=== PATIENT | male | born 1990 | race African-American/Black ===

== ENCOUNTER 2024-02-24 00:56 | Emergency (ER) | payer BC, OTHER ==
[2024-02-24 01:09] VITALS: BMI 29.3
[2024-02-24] MEDS ORDERED: ACETAMINOPHEN INJECTION 100 ML IVPB ONE (03:13)
[2024-02-24] MEDS: LACTATED RINGERS SOLUTION 1000 ML INFUS.BAG IV ONE (03:29)
[2024-02-24] MEDS: ACETAMINOPHEN 1000 MG/100 ML BAG IVPB ONE (03:29)
[2024-02-24 04:25] LABS: BASO % 0.4 % (0-2.0); EOS % 0.1 % (0-4.5); HEMATOCRIT 41.7 % (35.4-49); HEMOGLOBIN 14.3 GM/dL (11.7-16.9); LYMPH % 17.5 % (8-40); MCH 28.1 pg (25.7-33.7); MCHC 34.2 g/dl (32.0-35.9); MEAN CELL VOLUME 82.2 fl (80-96); MEAN PLT VOLUME 11.4 fl (7.5-11.1); MONO % 5.3 % (3.8-10.2); NEUT % 76.7 % (42.8-82.8); PLATELET COUNT 75 10^3/uL (134-434); RBC 5.08 M/mm3 (4.00-5.60); RDW 14.7 % (11.9-15.9); WHITE BLOOD COUNT 4.8 K/mm3 (4.0-10.0)
[2024-02-24 04:38] LABS: ALBUMIN 3.6 g/dl (3.4-5.0); BLOOD UREA NITROGEN 15.3 mg/dL (7-18); CALCIUM 8.3 mg/dL (8.5-10.1); POTASSIUM 3.5 mmol/L (3.5-5.1)
[2024-02-24 04:40] LABS: CREATININE 1.2 mg/dL (0.55-1.3)
[2024-02-24 04:41] LABS: BILIRUBIN,TOTAL 5.6 mg/dL (0.2-1); TOT PROT 7.2 g/dl (6.4-8.2)
[2024-02-24 04:50] VITALS: BP 105/69; PULSE 122; RESP 20; TEMP 99.9
== END 2024-02-24 05:15 | disposition home or self-care (01) ==
LOC: JER 00:56
PROC: 3E033NZ Introduction of Analgesics, Hypnotics, Sedatives into Peripheral Vein, Percutaneous Approach (ICD-10-PCS; principal; 2024-02-24)
DX: R50.9 Fever, unspecified (principal); R61 Generalized hyperhidrosis; R00.0 Tachycardia, unspecified; Z20.822 Contact with and (suspected) exposure to COVID-19
CPT/HCPCS: 0241U-QW; 36415; 71046-TC-FY; 80053; 85025; 87040; 93005; 93010; 99285-25; J0131

== ENCOUNTER 2024-02-26 15:49 | Inpatient (IN) | payer OTHER ==
[2024-02-26 16:22] VITALS: BMI 28.8
[2024-02-26] MEDS ORDERED: ACETAMINOPHEN INJECTION 100 ML IVPB ONE (17:45)
[2024-02-26] MEDS: LACTATED RINGERS SOLUTION 1000 ML INFUS.BAG IV ONE ×2 (17:48→21:55)
[2024-02-26] MEDS: ACETAMINOPHEN 1000 MG/100 ML BAG IVPB ONE ×2 (17:48→19:40)
[2024-02-26 18:08] LABS: HEMATOCRIT 32.9 % (35.4-49); HEMOGLOBIN 11.1 GM/dL (11.7-16.9); MCH 27.2 pg (25.7-33.7); MCHC 33.8 g/dl (32.0-35.9); MEAN CELL VOLUME 80.3 fl (80-96); MEAN PLT VOLUME 11.3 fl (7.5-11.1); PLATELET COUNT 55 10^3/uL (134-434); RDW 15.1 % (11.9-15.9); WHITE BLOOD COUNT 6.9 K/mm3 (4.0-10.0)
[2024-02-26 18:19] LABS: POTASSIUM 3.7 mmol/L (3.5-5.1)
[2024-02-26 18:21] LABS: CALCIUM 7.9 mg/dL (8.5-10.1)
[2024-02-26 18:22] LABS: BLOOD UREA NITROGEN 27.1 mg/dL (7-18)
[2024-02-26 18:25] LABS: CREATININE 1.5 mg/dL (0.55-1.3)
[2024-02-26 18:26] LABS: ALBUMIN 2.4 g/dl (3.4-5.0)
[2024-02-26 18:28] LABS: BILIRUBIN,TOTAL 8.2 mg/dL (0.2-1)
[2024-02-26] MEDS: METOCLOPRAMIDE HCL INJECTION 10 MG/2 ML VIAL IVPUSH ONE (19:36)
[2024-02-26 19:41] LABS: ANISOCYTOSIS 1+; MACROCYTOSIS 0; OVALOCYTE 1+; TARGET CELLS 1+; TOXIC GRANULATION 1+
[2024-02-26 20:31] LABS: RETICULOCYTES 0.66 % (0.5-1.5)
[2024-02-26 20:40] LABS: BILIRUBIN,DIRECT 5.8 mg/dL (0.0-0.2)
[2024-02-26] MEDS: HALOPERIDOL LACTATE 5 MG/ML IM ONE (21:46)
[2024-02-26] MEDS ORDERED: MORPHINE SULFATE 2 MG/ML SYRINGE ONE (21:49)
[2024-02-26] MEDS: morphine CARPU-JECT 2 MG/1 ML DISP.SYRIN IVPUSH ONE (21:55)
[2024-02-26] MEDS ORDERED: ONDANSETRON 4 MG/2 ML VIAL IVPUSH PRN (22:10)
[2024-02-26] MEDS ORDERED: PIPERACILLIN/TAZOB 4.5 GM 4.5 GM/100 ML BAG IVPB ONE (23:14)
[2024-02-26] MEDS ORDERED: DOXYCYCLINE HYCLATE 100 MG VIAL ONE (23:15)
[2024-02-26] MEDS: PIPERACILLIN/TAZOB 4.5 GM 4.5 GM in DEXTROSE 5%-WATER 100 ML IVPB ONE (23:23)
[2024-02-26] MEDS ORDERED: ONDANSETRON 4 MG/2 ML VIAL ONE (23:42)
[2024-02-27] MEDS: ONDANSETRON 4 MG/2 ML VIAL IVPUSH ONE (00:05)
[2024-02-27] MEDS: DOXYCYCLINE INJECTION 100 MG in DEXTROSE 5%-WATER 100 ML IVPB ONE (00:05)
[2024-02-27] MEDS ORDERED: ACETAMINOPHEN INJECTION 100 ML IVPB ONE (01:05)
[2024-02-27] MEDS: ACETAMINOPHEN 1000 MG/100 ML BAG IVPB PRN (01:12)
[2024-02-27] MEDS ORDERED: PIPERACILLIN/TAZOBACTAM 3.375 GM VIAL IVPB ONE (03:56)
[2024-02-27] MEDS: PIPERACILLIN/TAZOB 3.375 GM 3.375 GM in DEXTROSE 5%-WATER - 50 ML IVPB SCH ×2 (03:59→16:29)
[2024-02-27 07:12] LABS: HEMOGLOBIN 10.4 GM/dL (11.7-16.9); MCHC 33.4 g/dl (32.0-35.9); MEAN CELL VOLUME 80.8 fl (80-96); RBC 3.84 M/mm3 (4.00-5.60); WHITE BLOOD COUNT 6.4 K/mm3 (4.0-10.0)
[2024-02-27 07:37] LABS: POTASSIUM 3.6 mmol/L (3.5-5.1)
[2024-02-27 07:52] LABS: TOT PROT 5.8 g/dl (6.4-8.2)
[2024-02-27 07:53] LABS: BLOOD UREA NITROGEN 22.8 mg/dL (7-18); CALCIUM 7.6 mg/dL (8.5-10.1)
[2024-02-27 07:54] LABS: ALBUMIN 2.2 g/dl (3.4-5.0); CREATININE 1.2 mg/dL (0.55-1.3); PHOSPHOROUS 2.2 mg/dL (2.5-4.9)
[2024-02-27 07:55] LABS: BILIRUBIN,TOTAL 5.9 mg/dL (0.2-1)
[2024-02-27] MEDS: ACETAMINOPHEN 1000 MG/100 ML BAG IVPB ONE (08:03)
[2024-02-27 09:07] LABS: PLATELET ESTIMATE DECREASED
[2024-02-27] MEDS: DOXYCYCLINE INJECTION 100 MG in DEXTROSE 5%-WATER 100 ML IVPB SCH (09:53)
[2024-02-27 10:56] LABS: PLATELET ESTIMATE DECREASED
[2024-02-27] MEDS: PROGUANIL PO SCH (16:27)
[2024-02-27] MEDS: ATOVAQUONE PO SCH (16:27)
[2024-02-27 20:24] LABS: INR 1.18 (0.83-1.09); PROTHROMBIN TIME (PATIENT) 13.5 SEC (9.7-13.0)
[2024-02-28] MEDS: ACETAMINOPHEN 1000 MG/100 ML BAG IVPB ONE (00:11)
[2024-02-28 07:34] LABS: INR 1.13 (0.83-1.09); PROTHROMBIN TIME (PATIENT) 12.9 SEC (9.7-13.0)
[2024-02-28 07:48] LABS: POTASSIUM 3.7 mmol/L (3.5-5.1)
[2024-02-28 07:50] LABS: HEMATOCRIT 28.5 % (35.4-49); HEMOGLOBIN 9.6 GM/dL (11.7-16.9); MCHC 33.5 g/dl (32.0-35.9); MEAN CELL VOLUME 80.5 fl (80-96); PLATELET COUNT 69 10^3/uL (134-434); RBC 3.55 M/mm3 (4.00-5.60); RDW 15.3 % (11.9-15.9); WHITE BLOOD COUNT 7.2 K/mm3 (4.0-10.0)
[2024-02-28 07:58] LABS: CALCIUM 7.7 mg/dL (8.5-10.1)
[2024-02-28 07:59] LABS: ALBUMIN 2.2 g/dl (3.4-5.0); BLOOD UREA NITROGEN 22.9 mg/dL (7-18)
[2024-02-28 08:02] LABS: BILIRUBIN,DIRECT 3.4 mg/dL (0.0-0.2)
[2024-02-28 08:03] LABS: TOT PROT 5.7 g/dl (6.4-8.2)
[2024-02-28 08:04] LABS: BILIRUBIN,TOTAL 4.4 mg/dL (0.2-1)
[2024-02-28 09:35] LABS: ANISOCYTOSIS 0; MACROCYTOSIS 0
[2024-02-28 09:38] LABS: PLATELET ESTIMATE DECREASED
[2024-02-29 07:58] LABS: HEMATOCRIT 28.2 % (35.4-49); HEMOGLOBIN 9.3 GM/dL (11.7-16.9); INR 1.09 (0.83-1.09); MCH 26.6 pg (25.7-33.7); MCHC 32.9 g/dl (32.0-35.9); MEAN CELL VOLUME 80.8 fl (80-96); MEAN PLT VOLUME 10.9 fl (7.5-11.1); PROTHROMBIN TIME (PATIENT) 12.3 SEC (9.7-13.0); RBC 3.49 M/mm3 (4.00-5.60); RDW 15.5 % (11.9-15.9); WHITE BLOOD COUNT 7.2 K/mm3 (4.0-10.0)
[2024-02-29 08:19] LABS: ALBUMIN 2.3 g/dl (3.4-5.0)
[2024-02-29 08:20] LABS: BLOOD UREA NITROGEN 19.8 mg/dL (7-18)
[2024-02-29 08:22] LABS: CALCIUM 7.8 mg/dL (8.5-10.1)
[2024-02-29 08:24] LABS: PLATELET COUNT 119 10^3/uL (134-434)
[2024-02-29 09:33] LABS: ANISOCYTOSIS 0; MACROCYTOSIS 0
[2024-02-29 12:39] LABS: RETICULOCYTES 1.25 % (0.5-1.5)
[2024-02-29] MEDS: LIDOCAINE 5% TOPICAL PATCH TP SCH (13:29)
[2024-02-29] MEDS: IBUPROFEN 400 MG TABLET (FP) PO PRN (19:30)
[2024-02-29] MEDS: LIDOCAINE PATCH REMOVAL MC SCH (22:15)
[2024-03-01 07:36] LABS: HEMATOCRIT 26.6 % (35.4-49); MCH 27.1 pg (25.7-33.7); MCHC 33.9 g/dl (32.0-35.9); MEAN CELL VOLUME 79.8 fl (80-96); MEAN PLT VOLUME 10.5 fl (7.5-11.1); PLATELET COUNT 152 10^3/uL (134-434); RBC 3.33 M/mm3 (4.00-5.60); RDW 15.1 % (11.9-15.9); WHITE BLOOD COUNT 9.1 K/mm3 (4.0-10.0)
[2024-03-01 07:38] LABS: INR 1.04 (0.83-1.09)
[2024-03-01 07:52] LABS: POTASSIUM 3.6 mmol/L (3.5-5.1)
[2024-03-01 08:09] LABS: ALBUMIN 2.3 g/dl (3.4-5.0); BLOOD UREA NITROGEN 17.4 mg/dL (7-18)
[2024-03-01 08:10] LABS: CREATININE 0.9 mg/dL (0.55-1.3)
[2024-03-01 08:12] LABS: BILIRUBIN,TOTAL 2.5 mg/dL (0.2-1); CALCIUM 7.7 mg/dL (8.5-10.1); TOT PROT 5.8 g/dl (6.4-8.2)
[2024-03-01 09:09] LABS: ANISOCYTOSIS 0; MACROCYTOSIS 0
[2024-03-01 14:08] LABS: BABESIA MICROTI ANTIBODY IGG <1:10 (Neg:<1:10); BABESIA MICROTI ANTIBODY IGM <1:10 (Neg:<1:10)
[2024-03-01 18:10] VITALS: RESP 18
[2024-03-02 08:41] LABS: HEMOGLOBIN 9.3 GM/dL (11.7-16.9); MCH 26.8 pg (25.7-33.7); MCHC 33.2 g/dl (32.0-35.9); MEAN CELL VOLUME 80.6 fl (80-96); MEAN PLT VOLUME 10.4 fl (7.5-11.1); PLATELET COUNT 243 10^3/uL (134-434); RBC 3.47 M/mm3 (4.00-5.60); RDW 15.4 % (11.9-15.9); WHITE BLOOD COUNT 11.5 K/mm3 (4.0-10.0)
[2024-03-02 08:52] LABS: POTASSIUM 4.2 mmol/L (3.5-5.1)
[2024-03-02 08:57] LABS: CALCIUM 7.9 mg/dL (8.5-10.1)
[2024-03-02 08:58] LABS: ALBUMIN 2.6 g/dl (3.4-5.0); BLOOD UREA NITROGEN 14.3 mg/dL (7-18)
[2024-03-02 09:01] LABS: CREATININE 0.8 mg/dL (0.55-1.3)
[2024-03-02 09:02] LABS: BILIRUBIN,TOTAL 1.9 mg/dL (0.2-1); TOT PROT 6.6 g/dl (6.4-8.2)
[2024-03-02 10:15] LABS: ANISOCYTOSIS 0; MACROCYTOSIS 0
[2024-03-02 10:18] LABS: PLATELET ESTIMATE ADEQUATE
[2024-03-02 17:23] VITALS: BP 104/50; PULSE 94; TEMP 98.1
[2024-03-04 16:09] LABS: E.chaff HME IgG Negative (Neg:<1:64)
== END 2024-03-02 17:35 | disposition home or self-care (01) | DRG 724 ==
LOC: JER 15:49 → JERBED 20:23 → J4W 02-27 03:32
PROVIDERS: ADMIT Internal Medicine; ATTEND Family Medicine
DX: B50.9 Plasmodium falciparum malaria, unspecified (principal); U07.1 COVID-19; N17.9 Acute kidney failure, unspecified; D69.6 Thrombocytopenia, unspecified; R17 Unspecified jaundice; E80.6 Other disorders of bilirubin metabolism; D64.9 Anemia, unspecified; R79.89 Other specified abnormal findings of blood chemistry
CPT/HCPCS: 0241U-QW; 36415; 71045-TC-FY; 71046-TC-FY; 76705-TC; 80053; 82140; 82248; 82728; 82930; 83010; 83540; 83550; 83615; 83735; 84100; 85025; 85045; 85384; 85610; 85730; 86618; 86666; 86704; 86753; 86803; 86850; 86880; 86900; 86901; 87040; 87207; 87340; 87517; 87635; 87798; 88300-TC; 93005; 93010; 99285-25; J0131